=== PATIENT | male | born 1990 | race Caucasian/White ===

== ENCOUNTER 2024-11-05 23:15 | Emergency (ER) | payer BC ==
[~2024-11-05] VITALS: Ht 182.9 cm; Wt 114.3 kg
[2024-11-06] MEDS ORDERED: PRED20TA PO (00:20)
[2024-11-06] MEDS ORDERED: CETI-90 PO (00:20)
[2024-11-06] MEDS ORDERED: predniSONE 20 MG TABLET ONE (00:26)
[2024-11-06] MEDS: predniSONE 20 MG TABLET PO ONE (00:29)
[2024-11-06 00:31] VITALS: BP 133/69; TEMP 98.3; O2SAT 98
== END 2024-11-06 00:31 | disposition home or self-care (01) ==
LOC: ER 23:22
DX: L50.9 Urticaria, unspecified (principal)
CPT/HCPCS: 99283; J7512

== ENCOUNTER 2025-06-21 12:01 | Emergency (ER) | payer BC ==
[~2025-06-21] VITALS: Ht 182.9 cm; Wt 113.4 kg
[~2025-06-21 12:01] MED LIST: CETI-90 PO; PRED20TA PO
[2025-06-21 12:10] VITALS: BP 139/81; TEMP 98.2
[2025-06-21] MEDS ORDERED: KETOROLAC TROMETHAMINE INJ 30 MG/ML VIAL ONE (12:32)
[2025-06-21] MEDS ORDERED: KETO10TA2 PO (12:34)
[2025-06-21] MEDS: KETOROLAC TROMETHAMINE INJ 30 MG/ML VIAL IM ONE (12:35)
[2025-06-21 12:49] VITALS: O2SAT 99
== END 2025-06-21 12:50 | disposition home or self-care (01) ==
LOC: ER 12:05
DX: M25.561 Pain in right knee (principal); Z79.52 Long term (current) use of systemic steroids
CPT/HCPCS: 99283; 96372; J1885